=== PATIENT | male | born 1955 | race Caucasian/White ===

== ENCOUNTER → 2018-05-03 | Day surgery (SDC) | payer BC ==
[~2018-05-03] VITALS: Ht 187.9 cm; Wt 102.1 kg
[~2018-05-03] MED LIST: ALBUTERAL PO; BIOTIN PO; CYCLOBENZAPRINE10 MG PO; FISH OIL PO; GLUCOTEN CAPLE1 EACH PO; MULTIVITAMIN PO; NIACIN PO; PERCOCET 10-321 EACH PO; SAW PALMETO PO; VITAMIN C PO
--- NOTE | ~2018-05-03 | PROC NOTE ---
[place], [place] PROCEDURE NOTE NAME: NEENA RIOS JR [facility] #: [id number] UNIT #: [id number] ROOM: DOCTOR: BOLIVAR BYRNES MD BIRTHDATE: [birth year] DOS: 05/03/2018 PREOPERATIVE DIAGNOSIS: Screening examination. POSTOPERATIVE DIAGNOSIS: Sigmoid diverticulosis. PROCEDURE: Colonoscopy. ENDOSCOPIST: Bolivar Byrnes MD [employer] RECONDITIONER: MAHI. ANESTHESIA: MAC. INDICATIONS: This is a 62-year-old gentleman who is here for a screening examination. The procedure and its complications were explained to the patient in detail preoperatively. Complications that were discussed included but were not limited to, bleeding, colon perforation, and missed lesions. He agreed to proceed. DESCRIPTION OF PROCEDURE: After identifying the patient, the patient was brought to the operating suite and laid in the left lateral position. After IV sedation was administered, a timeout procedure was called and a digital rectal exam was performed. This was within normal limits. An adult colonoscope was now introduced into the anal canal and advanced sequentially into the rectum, sigmoid colon, descending colon, transverse colon, and ascending colon up to the cecum. Upon reaching the cecum, the scope was withdrawn. Total withdrawal time was approximately 6 minutes 30 seconds. There were no obvious lesions seen in the entirety of the colon. There was mild diverticulosis seen in the sigmoid colon with no complications. After withdrawal of the scope, the patient was brought back to the recovery in stable fashion. There were no complications. Based on these findings, the patient is recommended to have another colonoscopy in 10 years or sooner if he has new symptoms. These findings were discussed with the patient's daughter in the recovery room. Bolivar Byrnes MD CM:PROCNOTE:PROCEDURE NOTE [id number] BOLIVAR BYRNES MD
[2018-05-03 11:17] VITALS: BP 142/86
[2018-05-03 12:55] VITALS: BP 115/64
[2018-05-03 13:10] VITALS: BP 124/67
[2018-05-03 13:21] VITALS: BP 123/69
== END | disposition home or self-care (01) ==
LOC: SDC 05-01 08:45
DX: Z12.11 Encounter for screening for malignant neoplasm of colon (principal); K57.30 Diverticulosis of large intestine without perforation or abscess without bleeding; J45.909 Unspecified asthma, uncomplicated; Z98.890 Other specified postprocedural states; Z87.891 Personal history of nicotine dependence; Z72.89 Other problems related to lifestyle; Z79.899 Other long term (current) drug therapy; Z80.42 Family history of malignant neoplasm of prostate; Z82.49 Family history of ischemic heart disease and other diseases of the circulatory system; Z80.0 Family history of malignant neoplasm of digestive organs

== ENCOUNTER → 2022-02-16 | Outpatient (CLI) | payer MEDICARE, BC | END | disposition home or self-care (01) | LOC: CARD 03:16 | PROVIDERS: ATTEND Family Medicine | DX: I35.8 Other nonrheumatic aortic valve disorders (principal); I51.7 Cardiomegaly; I71.21 Aneurysm of the ascending aorta, without rupture; R91.1 Solitary pulmonary nodule ==

== ENCOUNTER → 2022-04-22 | Outpatient (CLI) | payer OTHER ==
[2022-04-22 18:16] LABS: BASO % 0.2 % (0.0-1.0); HEMATOCRIT 47.1 % (42.0-52.0); LYMPH # 1.7 10*3/uL (1.3-4.4); LYMPH % 12.5 % (27.0-41.0); MEAN CORPUSCULAR HGB 30.9 pg (27.0-31.0); MEAN CORPUSCULAR HGB CONC 33.5 g/dl (33.0-37.0); MONO # 0.9 10*3/uL (0.1-1.0); MONO % 6.6 % (3.0-9.0); NEUT # 10.6 10*3/uL (2.3-7.9); NEUT % 80.2 % (47.0-73.0); PLATELET COUNT AUTOMATED 243 10*3/uL (130-400); RED BLOOD COUNT 5.12 10*6/uL (4.50-5.90); RED CELL DISTRI WIDTH 12.8 % (0-14.5); WHITE BLOOD COUNT 13.2 10*3/uL (4.8-10.8)
[2022-04-22 18:32] LABS: ALKALINE PHOSPHATASE 69 U/L (46-116); BUN 15 mg/dl (9-23); CHLORIDE 103 mmol/L (98-107); POTASSIUM 4.2 mmol/L (3.4-5.1); SGPT/ALT 38 U/L (10-49); TOTAL PROTEIN 7.1 gm/dL (6.0-8.0)
== END | disposition home or self-care (01) ==
LOC: LAB 17:00
PROVIDERS: Student in an Organized Health Care Education/Training Program; ATTEND Family Medicine
DX: R53.83 Other fatigue (principal)

== ENCOUNTER → 2022-08-09 | Outpatient (CLI) | payer OTHER | END | disposition home or self-care (01) | LOC: CT 01:08 | PROVIDERS: ATTEND Family Medicine | DX: R91.1 Solitary pulmonary nodule (principal) ==

== ENCOUNTER → 2022-08-30 | Outpatient (CLI) | payer OTHER | END | disposition home or self-care (01) | LOC: US 00:17 | PROVIDERS: ATTEND Family Medicine | DX: Z13.6 Encounter for screening for cardiovascular disorders (principal); Z87.891 Personal history of nicotine dependence ==

== ENCOUNTER → 2023-11-02 | Outpatient (CLI) | payer OTHER | END | disposition home or self-care (01) | LOC: CT 01:55 | PROVIDERS: ATTEND Family Medicine | DX: R91.1 Solitary pulmonary nodule (principal); I34.0 Nonrheumatic mitral (valve) insufficiency; I71.21 Aneurysm of the ascending aorta, without rupture; F17.210 Nicotine dependence, cigarettes, uncomplicated ==